=== PATIENT | female | born 1960 | race Caucasian/White ===

== ENCOUNTER → 2017-02-20 | Outpatient (CLI) | payer MEDICARE | END | disposition home or self-care (01) | LOC: LABWHC1 11:19 | PROVIDERS: ATTEND Nurse Practitioner Family | DX: N18.5 Chronic kidney disease, stage 5 (principal); K75.9 Inflammatory liver disease, unspecified | CPT/HCPCS: 36415; 80074 ==

== ENCOUNTER → 2017-07-31 | Outpatient (CLI) | payer MEDICARE ==
--- NOTE | 2017-08-03 09:01 | MM ---
Reason for exam: screening (asymptomatic). Last mammogram was performed 1 year and 2 months ago. History: Patient is postmenopausal and had first child at age 29. Took hormonal contraceptives for 8 years beginning at age 17. Physical Findings: A clinical breast exam by your physician is recommended on an annual basis and results should be correlated with mammographic findings. MG 3D Screening Mammo W/Cad Bilateral CC and MLO view(s) were taken. Prior study comparison: May 23, 2016, bilateral MG screening mammo w CAD. May 16, 2015, bilateral MG screening mammo w CAD. The breast tissue is heterogeneously dense. This may lower the sensitivity of mammography. No suspicious abnormality. No significant changes when compared with prior studies. ASSESSMENT: Negative, BI-RAD 1 RECOMMENDATION: Routine screening mammogram of both breasts in 1 year.
== END | disposition home or self-care (01) ==
LOC: RADMAMWWP 16:50
PROVIDERS: ATTEND Internal Medicine
DX: Z12.31 Encounter for screening mammogram for malignant neoplasm of breast (principal)
CPT/HCPCS: 77063; 77067

== ENCOUNTER → 2018-09-07 | Outpatient (CLI) | payer MEDICARE ==
--- NOTE | 2018-09-09 11:59 | MM ---
Reason for exam: screening (asymptomatic). Last mammogram was performed 1 year and 1 month ago. History: Patient is postmenopausal and had first child at age 29. Took hormonal contraceptives for 8 years beginning at age 17. Physical Findings: A clinical breast exam by your physician is recommended on an annual basis and results should be correlated with mammographic findings. MG 3D Screening Mammo W/Cad Bilateral CC and MLO view(s) were taken. XCCL view(s) were taken of the right breast. Prior study comparison: July 31, 2017, bilateral MG 3d screening mammo w/cad. May 23, 2016, bilateral MG screening mammo w CAD. The breast tissue is heterogeneously dense. This may lower the sensitivity of mammography. There is no discrete abnormality. ASSESSMENT: Negative, BI-RAD 1 RECOMMENDATION: Routine screening mammogram of both breasts in 1 year.
== END | disposition home or self-care (01) ==
LOC: RADMAMWWP 13:02
PROVIDERS: ATTEND Internal Medicine
DX: Z12.31 Encounter for screening mammogram for malignant neoplasm of breast (principal)
CPT/HCPCS: 77063; 77067

== ENCOUNTER → 2020-04-19 | Outpatient (CLI) | payer MEDICARE ==
--- NOTE | 2020-04-23 09:05 | MM ---
Reason for exam: screening (asymptomatic). Last mammogram was performed 1 year and 7 months ago. History: Patient is postmenopausal and had first child at age 29. Took hormonal contraceptives for 8 years beginning at age 17. Physical Findings: A clinical breast exam by your physician is recommended on an annual basis and results should be correlated with mammographic findings. MG Screening Mammo w CAD Bilateral CC, MLO, and XCCL view(s) were taken. Prior study comparison: September 07, 2018, bilateral MG 3d screening mammo w/cad. July 31, 2017, bilateral MG 3d screening mammo w/cad. The breast tissue is heterogeneously dense. This may lower the sensitivity of mammography. No significant changes when compared with prior studies. ASSESSMENT: Benign, BI-RAD 2 RECOMMENDATION: Routine screening mammogram of both breasts in 1 year. Patient should continue monthly self breast exams. A negative report should not preclude additional follow up of suspicious palpable abnormalities.
== END | disposition home or self-care (01) ==
LOC: RADMAMWWP 15:20
PROVIDERS: ATTEND Internal Medicine
DX: Z12.31 Encounter for screening mammogram for malignant neoplasm of breast (principal)
CPT/HCPCS: 77067

== ENCOUNTER → 2021-09-17 | Outpatient (CLI) | payer MEDICARE ==
--- NOTE | 2021-09-17 16:54 | BD ---
EXAMINATION TYPE: Axial Bone Density DATE OF EXAM: 09/17/2021 COMPARISON: 02/19/2007 CLINICAL HISTORY: 60 years year old Female. ICD-10 CODE: M85.88 Other disorder of bone density Height: 5'4 1/2 Weight: 123 FRAX RISK QUESTIONS: History of Fracture in Adulthood: Y Secondary Osteoporosis: 1. Type 1 Diabetes: y RISK FACTORS HISTORY OF: History of Wrist Fracture: y When: 2019 Postmenopausal woman: y MEDICATIONS: Additional Medications: diabetes, insulin ,anti rejection for kidney transplant Additional History: kidney transplant 2019 EXAM MEASUREMENTS: Bone mineral densitometry was performed using the [employer] System. Bone mineral density as measured about the Lumbar spine is: ----- L1-L4(G/cm2): 0.830 T Score Values are as follows: ----- L1: -3.2 ----- L2: -3.5 ----- L3: -2.6 ----- L4: -2.7 ----- L1-L4: -2.9 Bone mineral density has: Decreased -15.7% since study of: 02/19/2007 Bone mineral density about the R hip (g/cm2): 0.661 Bone mineral density about the L hip (g/cm2): 0.598 T Score values are as follows: -----R Neck: -2.7 -----L Neck: -3.2 -----R Total: -2.7 -----L Total: -3.2 Bone mineral density has: Decreased 29.1% since study of: 02/19/2007 FRAX%s: The graph provided illustrates a 25.3 chance for a major osteoporotic fx and a 8.6 chance for the hips probability for fx in 10 years time. IMPRESSION: Osteoporosis (T Score less than -2.5). There is increased fracture risk and therapy is usually indicated based on age. Re-Screen 1-2 years. NOTE: T-SCORE=SD OF THE YOUNG ADULT MEAN.
--- NOTE | 2021-09-19 10:47 | MM ---
Reason for exam: screening (asymptomatic). Last mammogram was performed 1 year and 5 months ago. History: Patient is postmenopausal and had first child at age 29. Took hormonal contraceptives for 8 years beginning at age 17. Physical Findings: A clinical breast exam by your physician is recommended on an annual basis and results should be correlated with mammographic findings. MG 3D Screening Mammo W/Cad Bilateral CC and MLO view(s) were taken. Prior study comparison: April 19, 2020, bilateral MG screening mammo w CAD. September 07, 2018, bilateral MG 3d screening mammo w/cad. The breast tissue is extremely dense which could obscure a lesion on mammography. No significant changes when compared with prior studies. ASSESSMENT: Benign, BI-RAD 2 RECOMMENDATION: Routine screening mammogram of both breasts in 1 year.
== END | disposition home or self-care (01) ==
LOC: RADMAMWWP 14:22
PROVIDERS: ATTEND Internal Medicine
DX: Z12.31 Encounter for screening mammogram for malignant neoplasm of breast (principal); M81.0 Age-related osteoporosis without current pathological fracture; Z78.0 Asymptomatic menopausal state
CPT/HCPCS: 77063; 77067; 77080

== ENCOUNTER → 2022-09-25 | Outpatient (CLI) | payer MEDICARE ==
--- NOTE | 2022-09-26 10:55 | MM ---
Reason for Exam: Screening (asymptomatic). Last screening mammogram was performed 12 month(s) ago. Patient History: Menarche at age 11. First Full-Term at age 29. Late child-bearing (after 28). Postmenopausal. Hormonal Contraceptives for 8 years from age 17 until age 43. Risk Values: Yolanda 5 year model risk: 2.2%. NCI Lifetime model risk: 9.1%. Prior Study Comparison: 09/07/2018 Bilateral Screening Mammogram, [facility]. 04/19/2020 Bilateral Screening Mammogram, [facility]. 09/17/2021 Bilateral Screening Mammogram, [facility]. Tissue Density: The breast tissue is heterogeneously dense. This may lower the sensitivity of mammography. Findings: Analyzed By CAD. Benign-appearing vascular calcification the left breast is present. There is no suspicious group of microcalcifications or new suspicious mass in either breast. Overall Assessment: Negative, BI-RAD 1 Management: Screening Mammogram of both breasts in 1 year. Some advise bilateral breast ultrasound surveillance in patients with background dense tissue. A clinical breast exam by your physician is recommended on an annual basis and results should be correlated with mammographic findings. Electronically signed and approved by: Arnoldo Caldwell M.D.
== END | disposition home or self-care (01) ==
LOC: RADMAMWWP 13:42
PROVIDERS: ATTEND Internal Medicine
DX: Z12.31 Encounter for screening mammogram for malignant neoplasm of breast (principal); Z78.0 Asymptomatic menopausal state
CPT/HCPCS: 77063; 77067

== ENCOUNTER → 2024-09-05 | Outpatient (CLI) | payer MEDICARE ==
--- NOTE | 2024-09-08 13:48 | MM ---
Reason for Exam: Screening (asymptomatic). Last mammogram was performed 1 year(s) and 11 month(s) ago. Patient History: Menarche at age 11. First Full-Term at age 29. Late child-bearing (after 28). Postmenopausal. Hormonal Contraceptives for 8 years from age 17 until age 43. Risk Values: Yolanda 5 year model risk: 2.3%. NCI Lifetime model risk: 8.6%. Prior Study Comparison: 04/19/2020 Bilateral Screening Mammogram, [facility]. 09/17/2021 Bilateral Screening Mammogram, [facility]. 09/25/2022 Bilateral MG 3D screening mammo w/cad, [facility]. Tissue Density: The breasts are heterogeneously dense, which may obscure small masses. Findings: Analyzed By CAD. There is no suspicious group of microcalcifications or new suspicious mass in either breast. Overall Assessment: Negative, BI-RAD 1 Management: Screening Mammogram of both breasts in 1 year. . Patient should continue monthly self-breast exams. A clinical breast exam by your physician is recommended on an annual basis. This exam should not preclude additional follow-up of suspicious palpable abnormalities. Note on Yolanda scores and lifetime risk: 1. A Yolanda score greater than 3% is considered moderate risk. If this is the case, consider specialist referral to assess eligibility for a risk reducing agent. 2. If overall lifetime risk for the development of breast cancer is 20% or higher, the patient may qualify for future screening with alternating mammogram and breast MRI. [facility], , 09/05/2024 1:59 PM. Electronically signed and approved by: Ivan Hogan M.D. Radiolog[facility]
== END | disposition home or self-care (01) ==
LOC: RADMAMWWP 13:41
PROVIDERS: ATTEND Internal Medicine
DX: Z12.31 Encounter for screening mammogram for malignant neoplasm of breast (principal); R92.333 Mammographic heterogeneous density, bilateral breasts; Z78.0 Asymptomatic menopausal state; Z92.0 Personal history of contraception
CPT/HCPCS: 77063; 77067